=== PATIENT | male | born 1950 | race Two or more races ===

== ENCOUNTER 2018-06-23 14:40 | Emergency (ER) | payer OTHER, MEDICAID ==
[~2018-06-23] VITALS: Ht 170.2 cm; Wt 95.3 kg
[2018-06-23 15:33] VITALS: BP 122/79
[2018-06-23] MEDS ORDERED: KETOROLAC TROMETH 60MG/2ML VIAL IM ONE (16:30)
== END 2018-06-23 16:28 | disposition home or self-care (01) ==
LOC: EDBD 14:40 → ER 14:43
DX: M54.2 Cervicalgia (principal); R51 Headache; R07.89 Other chest pain; R41.0 Disorientation, unspecified; R53.1 Weakness; I10 Essential (primary) hypertension; E11.9 Type 2 diabetes mellitus without complications; V49.49XA Driver injured in collision with other motor vehicles in traffic accident, initial encounter; Y93.89 Activity, other specified; Y92.488 Other paved roadways as the place of occurrence of the external cause; Y99.8 Other external cause status
CPT/HCPCS: 70450; 71250; 72125; 74176; 96372; 99284; J1885